=== PATIENT | female | born 1990 | race Caucasian/White ===

== ENCOUNTER 2019-04-28 18:53 | Inpatient (IN) | payer OTHER ==
[~2019-04-28] VITALS: Ht 167.6 cm; Wt 76.7 kg
[2019-04-28] MEDS ORDERED: AMPICILLIN SODIUM 2 GM in NS 100 ML IV ONE (22:15)
[2019-04-28] MEDS ORDERED: NALBUPHINE HCL 10 MG/ML AMP IVP PRN (22:15)
[2019-04-28] MEDS ORDERED: TERBUTALINE SULFATE 1 MG/ML VIAL SUBCUT ONE (22:15)
[2019-04-28] MEDS ORDERED: LR 1,000 ML IV ONE (22:15)
[2019-04-28] MEDS ORDERED: AMPICILLIN SODIUM 2 GM VIAL ONE (22:32)
[2019-04-28 22:33] LABS: BASOPHILS % (AUTO) 0.2 % (0.0-2.0); EOSINOPHILS # (AUTO) 0.1 K/uL (0.0-0.4); EOSINOPHILS % (AUTO) 0.5 % (0.0-4.0); HEMATOCRIT 41.7 % (36-48); HEMOGLOBIN 14.3 g/dL (12.0-16.0); LYMPHOCYTES # (AUTO) 1.2 K/uL (1.0-5.5); LYMPHOCYTES % (AUTO) 8.1 % (20.5-51.5); MEAN CORPUSCULAR HEMOGLOBIN 32 pg (27-31); MEAN CORPUSCULAR HGB CONC 34 % (32-36); MEAN CORPUSCULAR VOLUME 92 fL (79.0-98.0); MONOCYTES # (AUTO) 0.8 K/uL (0.0-1.0); MONOCYTES % (AUTO) 5.1 % (1.7-9.3); NEUTROPHILS # (AUTO) 13.2 K/uL (1.8-7.7); NEUTROPHILS % (AUTO) 86.1 % (40.0-70.0); PLATELET COUNT (AUTO) 242 K/uL (130-430); RED BLOOD CELL COUNT(AUTO) 4.55 MIL/uL (4.2-6.2); RED CELL DISTRIBUTION WIDTH 13.6 % (9.0-15.0); WHITE BLOOD COUNT (AUTO) 15.3 K/uL (4.8-10.8)
[2019-04-28] MEDS ORDERED: fentaNYL CITRATE/PF 100 MCG/2 ML AMP ONE (23:21)
[2019-04-28] MEDS ORDERED: ROPIVACAINE HCL/PF 0.2% 200 ML ONE (23:22)
[2019-04-28] MEDS: LR 1,000 ML IV SCH (23:25)
[2019-04-29] MEDS ORDERED: LR 500 ML IV ONE (00:11)
[2019-04-29] MEDS ORDERED: FENT2mCg/mL-ROPIVA0.2%/NS EPID 200 ML EP SCH ×2 (00:15→16:30)
[2019-04-29 01:27] VITALS: BP_SYST 128
[2019-04-29] MEDS: LR 1,000 ML IV SCH (02:30)
[2019-04-29] MEDS: AMPICILLIN SODIUM 1 GM in NS 50 ML IV SCH ×6 (02:30→22:32)
[2019-04-29] MEDS ORDERED: AMPICILLIN SODIUM 1 GM VIAL ONE ×3 (02:44→10:25)
[2019-04-29] MEDS: OXYTOCIN/0.9 % SODIUM CHLORIDE 1,000 ML IV SCH (05:35)
[2019-04-29] MEDS ORDERED: ONDANSETRON HCL 4 MG/2 ML VIAL IVP PRN (14:45)
[2019-04-29] MEDS ORDERED: FENT2mCg/mL-ROPIVA0.2%/NS EPID 150 ML EP SCH (16:00)
[2019-04-29] MEDS: ACETAMINOPHEN 325 MG TABLET PO PRN (22:32)
[2019-04-29] MEDS ORDERED: ACETAMINOPHEN 325 MG TABLET ONE (22:41)
[2019-04-30] MEDS: AMPICILLIN SODIUM 1 GM in NS 50 ML IV SCH ×2 (02:30→06:30)
[2019-04-30] MEDS: OXYTOCIN/0.9 % SODIUM CHLORIDE 1,000 ML IV SCH (03:00)
[2019-04-30] MEDS: ACETAMINOPHEN 325 MG TABLET PO PRN (04:47)
[2019-04-30] MEDS ORDERED: CEFAZOLIN 2 GM IVPB PREMIX 50 ML IV ONE (06:30)
[2019-04-30] MEDS ORDERED: LR 1,000 ML IV SCH ×2 (08:18→08:37)
[2019-04-30] MEDS ORDERED: BUPIVACAINE /PF 0.5% 30 ML VIAL EP ONE (08:20)
[2019-04-30] MEDS ORDERED: KETOROLAC TROMETHAMINE 60 MG/2 ML VIAL IM PRN (08:30)
[2019-04-30] MEDS ORDERED: DIPHENHYDRAMINE INJ 50 MG/ML VIAL IM PRN (08:30)
[2019-04-30] MEDS ORDERED: ONDANSETRON HCL 4 MG/2 ML VIAL IVP PRN (08:30)
[2019-04-30] MEDS ORDERED: MORPHINE SULFATE 10MG/10ML PF AMP EP SCH (08:30)
[2019-04-30] MEDS ORDERED: NALOXONE HCL 0.4 MG/ML AMP (NARCAN) IVP PRN (08:30)
[2019-04-30 08:37] VITALS: BP_SYST 115
[2019-04-30] MEDS ORDERED: OXYTOCIN/0.9 % SODIUM CHLORIDE 1,000 ML IV ONE (08:37)
[2019-04-30] MEDS ORDERED: LANOLIN 7 GM OINT. TP PRN (08:45)
[2019-04-30] MEDS ORDERED: ANUSOL 1 EA SUPP.RECT (PREPARATION H) RC PRN (08:45)
[2019-04-30] MEDS ORDERED: BISACODYL 10 MG/SUPPOSITORY RC PRN (08:45)
[2019-04-30] MEDS ORDERED: HYDROmorphone 2 MG/ML VIAL IVP ONE (09:30)
[2019-04-30] MEDS ORDERED: HYDROmorphone 2 MG/ML VIAL ONE (09:34)
[2019-04-30] MEDS: SIMETHICONE 80 MG TAB.CHEW PO PRN (18:42)
[2019-04-30] MEDS ORDERED: TEMAZEPAM 15 MG CAPSULE PO PRN (21:00)
[2019-04-30] MEDS ORDERED: FLU VACC QS2019-20 36MOS UP/PF 60 MCG/0.5 ML SYRINGE I.M. PRN (23:00)
[2019-05-01] MEDS: OXYCODONE/ACETAMINOPHEN 5-325 TABLET PO PRN ×4 (01:50→21:05)
[2019-05-01] MEDS: IBUPROFEN 800 MG TABLET PO PRN ×4 (06:04→23:25)
[2019-05-01 07:46] LABS: BASOPHILS % (AUTO) 0.2 % (0.0-2.0); EOSINOPHILS # (AUTO) 0.3 K/uL (0.0-0.4); EOSINOPHILS % (AUTO) 1.8 % (0.0-4.0); HEMATOCRIT 30.4 % (36-48); HEMOGLOBIN 10.4 g/dL (12.0-16.0); LYMPHOCYTES # (AUTO) 1.3 K/uL (1.0-5.5); LYMPHOCYTES % (AUTO) 8.2 % (20.5-51.5); MEAN CORPUSCULAR HEMOGLOBIN 32 pg (27-31); MEAN CORPUSCULAR HGB CONC 34 % (32-36); MEAN CORPUSCULAR VOLUME 93 fL (79.0-98.0); MONOCYTES # (AUTO) 0.9 K/uL (0.0-1.0); MONOCYTES % (AUTO) 6.1 % (1.7-9.3); NEUTROPHILS # (AUTO) 12.8 K/uL (1.8-7.7); NEUTROPHILS % (AUTO) 83.7 % (40.0-70.0); PLATELET COUNT (AUTO) 165 K/uL (130-430); RED BLOOD CELL COUNT(AUTO) 3.29 MIL/uL (4.2-6.2); WHITE BLOOD COUNT (AUTO) 15.3 K/uL (4.8-10.8)
[2019-05-01] MEDS: DOCUSATE SODIUM 100 MG CAPSULE PO PRN ×2 (08:06→22:02)
[2019-05-01] MEDS: SIMETHICONE 80 MG TAB.CHEW PO PRN ×2 (08:06→14:14)
[2019-05-02] MEDS: IBUPROFEN 800 MG TABLET PO PRN ×2 (06:03→13:39)
[2019-05-02] MEDS ORDERED: OXYTOCIN 10 UNIT/ML VIAL IV ONE (07:40)
[2019-05-02] MEDS ORDERED: LR 1,000 ML IV.SOLN IV ONE (07:40)
[2019-05-02] MEDS ORDERED: MORPHINE SULFATE 10MG/10ML PF AMP EP ONE (07:40)
[2019-05-02] MEDS ORDERED: LIDOCAINE 2%, 20 ML MDV INJ ONE (07:40)
[2019-05-02] MEDS ORDERED: CEFAZOLIN 2 GM IVPB PREMIX 50 ML IV ONE (07:40)
[2019-05-02] MEDS ORDERED: ONDANSETRON HCL 4 MG/2 ML VIAL IVP ONE (07:40)
[2019-05-02] MEDS: SIMETHICONE 80 MG TAB.CHEW PO PRN ×3 (09:31→17:45)
[2019-05-02] MEDS: DOCUSATE SODIUM 100 MG CAPSULE PO PRN (09:31)
[2019-05-02] MEDS: OXYCODONE/ACETAMINOPHEN 5-325 TABLET PO PRN ×2 (11:53→17:45)
== END 2019-05-02 18:00 | disposition home or self-care (01) | DRG 540 ==
LOC: SPU 18:53 → INTOOBSV 18:53 → OBSVTOIN 22:00 → SPU 04-30 07:45
PROVIDERS: ADMIT Obstetrics & Gynecology; ATTEND Obstetrics & Gynecology
PROC: 10D00Z1 Extraction of Products of Conception, Low, Open Approach (ICD-10-PCS; principal; 2019-04-30 07:30)
DX: O98.82 Other maternal infectious and parasitic diseases complicating childbirth (principal); R71.0 Precipitous drop in hematocrit; O62.0 Primary inadequate contractions; B95.1 Streptococcus, group B, as the cause of diseases classified elsewhere; Z3A.39 39 weeks gestation of pregnancy; Z37.0 Single live birth
CPT/HCPCS: 36415; 81002-TC; 85025; 86592; 86886; 86900; 86901; 94760; G0378; J0290; J0690; J1170; J1885; J2001; J2274; J2300; J2405; J2590; J3010; J3490; J7120